=== PATIENT | male | born 1995 | race Caucasian/White ===

== ENCOUNTER 2023-07-21 08:09 | Emergency (ER) | payer OTHER ==
[~2023-07-21] VITALS: Ht 177.8 cm; Wt 102.0 kg
[2023-07-21] MEDS ORDERED: AZIT-12 PO (12:32)
[2023-07-21] MEDS ORDERED: BENZ200C70 PO (12:32)
[2023-07-21 12:46] VITALS: BP 140/82; TEMP 99; O2SAT 97
== END 2023-07-21 12:48 | disposition home or self-care (01) ==
LOC: M ED 08:09
DX: J18.1 Lobar pneumonia, unspecified organism (principal); Z79.2 Long term (current) use of antibiotics